=== PATIENT | female | born 1990 | race Asian ===

== ENCOUNTER 2018-11-28 16:05 | Inpatient (IN) | payer OTHER, BC ==
[2018-11-28] MEDS ORDERED: Lactated Ringers 1000 ML Bag* 1,000 ML IV ONE (17:25)
--- NOTE | 2018-11-28 17:40 | HP ---
General Information - Reason for Visit IUP@41 weeks IOL for postdates - General Information Maternal Age: 28 Grav: 1 Para: 0 SAB: 0 IEA: 0 Estimated Due Date: 11/21/18 Determined By: LMP Gestational Age in Weeks/Days: 41+0 Maternal Blood Type and Rh: O Positive - Results this Serology/RPR Result: Non-Reactive Rubella Result: Immune HBsAg Result: Negative HIV Result: Negative GBS Culture Result: Negative Past Medical History Pertinent Past Medical History: See Records Past Medical History Comment: PCOS Pertinent Past Surgical History: None Pertinent Family History: Non-Contributory - Antepartal Records Antepartal Records: Reviewed, Complicated by: - Polyhydramnios ( resolved); placental lesion (chorioangioma?); IUGR at outside facilty (resolved) Review of Systems Constitutional: Comfortable CV Complaint: No Respiratory: Shortness of Breath: No Gastrointestinal: No Nausea/Vomiting, Normal Bowel Movement Genitourinary: No Dysuria, No Bleeding, No Leaking Fluid Musculoskeletal: No Complaint Neurological: No Headache, No Visual Changes Movement: Normal Exam BP 118/97, HR 89, RR 17, O2 sat 100%. temp 98.7 - Measurements Height: 5 ft 4 in Weight: 142 lb Weight in lbs: 142.035060 Body Mass Index (BMI): 24.3 Pre- Weight: 110 lb Weight Gained This : 32 lbs and 0 ozs - Exam CVA: No CVA Tenderness Extremities: No Edema Heart: Normal Rhythm/Heart Sounds HEENT: No Significant Findings Lungs: Clear Bilaterally Rectal: Rectal Exam Deferred Reflexes: DTR 2+ Thyroid: No Thyromegaly - Abdominal Exam Abdomen Exam: Non-Tender, Fundal Height Consistent with Dates Targeted Exam Findings Cervical Exam: 2cm Effacement: 80% Station: 0 Presenting Part: Vertex Membrane Status: Intact Bleeding/Discharge: None EFM Findings - External Monitor Findings Baseline Heart Rate: 130 External Monitor Findings: Accelerations Present, No Pattern of Variable or Late Decelerations, Variability Moderate, Baseline Stable Contractions: Irregular, 45-90 Seconds Assessment/Plan - Assessment S: 28yo, , at 41+0 presents for an IOL for postdates. Pt reports good movement. Denies contractions, vaginal bleeding, loss of fluid. course significant for polyhydramnios (resolved), suspected IUGR (resolved), and a placental lesion (possible chorioangioma), persistent n/v, and a dx of left breast lump at outside facility. Pt and desire IOL. O: 118/67, HR 89, RR 17, temp 98.7 baseline 130, +accels, no decels Contractions q2-8 VE per CNM in office, 2/80-90%/0, vtx, posterior. Lopez score = 8 PE WNL A: IUP at 41+0 VSS FHT reassuring, no sign of metabolic acidemia Irregular contractions Lopez score of 8 = favorable for Pitocin induction P: Admit for IOL for postdates Given Lopez score of 8, PARQ dicussion with pt re: IOL with Pitocin Following dicussion, pt and opt to proceed with Pitocin induction Anticipate progression to - Plan Plan: Induction, Admit - Anticipate Vaginal Delivery - Date/Time of Admission Date of Admission: 11/28/18 Time of Admission: 17:00
[2018-11-28 17:44] LABS: ABS Basophils 0 10^3/ul (0-0.2); ABS Eosinophils 0.1 10^3/ul (0-0.6); ABS Monocytes 0.7 10^3/ul (0-0.8); ABS Nucleated RBC 0 10^3/ul; Eosinophil % 0.6 %; Hematocrit 40 % (35-47); Hemoglobin 13.4 g/dl (12.0-16.0); Lymphocyte % 20.8 %; Mean Corpuscular HGB Conc 33 g/dl (31-36); Mean Corpuscular Hemoglobin 28 pg (27-31); Mean Corpuscular Volume 84 fL (80-97); Mean Platelet Volume 7.8 fL (7.4-10.4); Nucleated Red Blood Cells % 0.1; Platelet Count 201 10^3/ul (150-450); Red Blood Count 4.82 10^6/ul (4.00-5.40); Red Cell Distribution Width 13 % (10.5-15); White Blood Count 9.8 10^3/ul (3.5-10.8)
[2018-11-28] MEDS ORDERED: Oxytocin in LR* 20 UNITS/1,000 ML BAG IVPB ONE (17:46)
[2018-11-28] MEDS ORDERED: Oxytocin in LR* 20 UNITS/1,000 ML BAG IVPB SCH (18:00)
[2018-11-28] MEDS: Lactated Ringers 1000 ML Bag* 1,000 ML IV SCH ×2 (18:18→21:33)
--- NOTE | 2018-11-28 21:59 | PN ---
Progress Note - Progress Note Date of Service: 11/28/18 Note: S: Pt reports feeling cramping, not associated with contractions. Overall reports doing well. Pt currently OOB, ambulating in the halls. O: Pitocin at 3mU FHT: baseline 140, moderate variability, +accels, variable decels VE deferred A: Currently Category I tracing; Periods of Category II that resolved with IV fluid bolus and position changes Pt comfortable, not in active labor P: Continue increasing pitocin as tolerated by pt and baby Anticipate progression to
--- NOTE | 2018-11-29 01:24 | PN ---
Progress Note - Progress Note Date of Service: 11/29/18 Note: S: Pt states she is feeling her contractions and the pain is becoming more intense. Requesting a vaginal exam. O: Pitocin at 6mU FHT 125, moderate variability, +accels, no decels VE: 2/0/-1, vtx posterior A: Category I FHT, no evidence of acidemia VE unchanged from VE prior to initiation of Pitocin Pt not in active labor P: Continue to increase pitocin as tolerated by pt and baby Encouraged pt to rest as needed Will consider AROM with pt consent if no cervical change with next VE Anticipate progression to
[2018-11-29] MEDS: Lactated Ringers 1000 ML Bag* 1,000 ML IV SCH ×3 (02:42→17:09)
[2018-11-29] MEDS ORDERED: Nalbuphine* 10 MG/ML 1 ML VIAL IV PRN (02:52)
[2018-11-29] MEDS ORDERED: Promethazine INJ(RESTRICTED)* 25 MG/ML 1 ML VIAL IV PRN (02:52)
--- NOTE | 2018-11-29 02:57 | PN ---
Progress Note - Progress Note Date of Service: 11/29/18 SOAP: Subjective: [Feeling general crampiness more than increasing contraction pain. Tired but finding it difficult to rest/sleep.] Objective: [Pit @ 10 FHT 125, Cat 1 UCs q 2-3 min VSS, afebrile] Assessment: [IUP @ 41+1 for induction of labor No evidence metabolic acidemia] Plan: [Discussed therapeutic rest and pitocin break with restart in the am after some sleep. Patients in agreement.]
--- NOTE | 2018-11-29 05:34 | PN ---
Progress Note - Progress Note Date of Service: 11/29/18 Note: S: Pt asleep. O: VSS A: IUP@41+1 IOL for postdates Successful therapeutic rest via nubain/phen P: Resume IOL when pt alert and active in the AM Anticipate progression to
[2018-11-29] MEDS ORDERED: Oxytocin in LR* 20 UNITS/1,000 ML BAG IVPB SCH ×2 (08:39→18:51)
[2018-11-29] MEDS ORDERED: OBEPIDURAL* 250 ML EPIDURAL ONE (11:41)
--- NOTE | 2018-11-29 11:44 | PN ---
Progress Note - Progress Note Date of Service: 11/29/18 Note: Slept after medication. Pitocin restarted at [id number], now sebastian every 2-3 minutes. Uncomfortable, requesting epidural Cervix: 4cm/100%, vtx 0 FHT: baseline 140, mod variability, accels present Dr. No contacted for epidural
[2018-11-29] MEDS ORDERED: fentaNYL* 50 MCG/ML 2 ML VIAL (100 MCG VIAL) ONE (11:47)
[2018-11-29] MEDS ORDERED: Phenylephrine IV* 40 MCG/ML 10 ML SYRINGE ONE (11:48)
[2018-11-29] MEDS ORDERED: Sodium Citrate/Citric Acid* 15 ML UDC PO PRN (12:22)
[2018-11-29] MEDS ORDERED: Lactated Ringers 1000 ML Bag* 500 ML IV PRN ×2 (12:22)
[2018-11-29] MEDS ORDERED: Famotidine TAB* 20 MG PO PRN (12:22)
[2018-11-29] MEDS ORDERED: Phenylephrine IV* 40 MCG/ML 10 ML SYRINGE IV PUSH PRN ×2 (12:22)
[2018-11-29] MEDS ORDERED: Lactated Ringers 1000 ML Bag* 1,000 ML IV ONE (12:22)
--- NOTE | 2018-11-29 12:57 | PN ---
Progress Note - Progress Note Date of Service: 11/29/18 Note: comfortable after epidural 4 variable decels to 60 in a 6-7 minute period, resolved after position change, O2, fluid. Pitocin off Cervix: 5-6 cm, 100% FHT now 150s with prolonged accel to 180. Will keep pitocin off for now, continue to observe closely
[2018-11-29] MEDS ORDERED: Lactated Ringers 1000 ML Bag* 1,000 ML IV SCH ×3 (13:00→19:00)
[2018-11-29] MEDS ORDERED: OBEPIDURAL* 250 ML EPIDURAL SCH (13:00)
--- NOTE | 2018-11-29 14:44 | PN ---
Progress Note - Progress Note Date of Service: 11/29/18 Note: No further decels or bradycardia but minimal variability. Baseline stable. Contractions have spaced out, every 4-6. Now leaking clear fluid. Cervix: 7cm/100%, vtx 0/-1 Variability now moderate after scalp stimulation. Will restart pitocin at 2 mu/min
--- NOTE | 2018-11-29 17:40 | PN ---
Progress Note - Progress Note Date of Service: 11/29/18 Note: Feeling pressure Fully dilated, vertex +2 at 1720, began pushing
[2018-11-29] MEDS ORDERED: Acetaminophen TAB* 325 MG PO PRN (18:48)
[2018-11-29] MEDS ORDERED: Dibucaine 1% 28.35 GM TUBE PR PRN (18:48)
[2018-11-29] MEDS ORDERED: Witch Hazel PAD* JAR TOPICAL PRN (18:48)
[2018-11-29] MEDS ORDERED: Glycerin ADULT SUPP PR PRN (18:48)
--- NOTE | 2018-11-29 18:59 | PROCNOTE ---
[facility] OB: Delivery Note - Delivery A Date of : 11/29/18 Time of : 18:25 [place] Sex: Female Score 1 Minute: 9 Score 5 Minutes: 9 Gestational Age in Weeks and Days at Delivery: 41 Weeks and 1 Days Delivery Method: Spontaneous Vaginal Labor: Induced Did Patient attempt ?: N/A, No Previous Amniotic Fluid: Clear Estimated Blood Loss: 300 Anesthesia/Analgesia: CEI for Labor Anesthesia Comment: Dr. No Delivered By: Juanita Pierson - Nursery Level of Nursery: Regular/Bedside - Perineum Perineal Injury: Perineal Laceration - partial 3rd degree Perineal Repair: Dr. Deutsch - Additional Delivery Notes Additional Delivery Notes: SVB LFC, OA, in squatting position. Baby pink with stimulation, terminal mec. Placenta Davi. Partial 3rd deg laceration noted, Dr. Deutsch called for repair. Placenta appears normal, no evidence of chorioangioma, sent to lab. EBL 300 cc
--- NOTE | 2018-11-29 19:34 | PN ---
Progress Note - Progress Note Date of Service: 11/29/18 Note: Asked to assist with perineal repair -it was a partial 3rd degree tear. The fibers of the capsule were reapproximated with 1 figure of eight suture of 3-0 vicryl rapide. Two deep figure of eight sutures were placed to decrease bleeding and reapproximate the perineal body. The rest of the repair was then done in the usual fashion.
[2018-11-29] MEDS: Ibuprofen TAB* 600 MG PO PRN (22:36)
[2018-11-30] MEDS: Ibuprofen TAB* 600 MG PO PRN ×2 (07:31→13:43)
[2018-11-30] MEDS ORDERED: Ferrous Gluconate TAB* 324 MG TAB PO SCH (09:00)
[2018-11-30] MEDS: Docusate CAP* 100 MG PO SCH ×4 (09:10→20:53)
[2018-11-30 09:31] LABS: Hematocrit 34 % (35-47); Hemoglobin 11.3 g/dl (12.0-16.0); Mean Corpuscular HGB Conc 33 g/dl (31-36); Mean Corpuscular Hemoglobin 28 pg (27-31); Mean Corpuscular Volume 83 fL (80-97); Mean Platelet Volume 7.9 fL (7.4-10.4); Platelet Count 163 10^3/ul (150-450); Red Cell Distribution Width 13 % (10.5-15); White Blood Count 12.2 10^3/ul (3.5-10.8)
[2018-12-01 08:28] VITALS: BP 103/64
[2018-12-01] MEDS: Docusate CAP* 100 MG PO SCH (09:24)
[2018-12-01] MEDS: Ibuprofen TAB* 600 MG PO PRN (09:24)
== END 2018-12-01 10:56 | disposition home or self-care (01) | DRG 768 ==
LOC: MCHOBOUT 16:05 → MCHOB 16:50
PROVIDERS: ADMIT Advanced Practice Midwife; ATTEND Advanced Practice Midwife
PROC: 10E0XZZ Delivery of Products of Conception, External Approach (ICD-10-PCS; principal; 2018-11-29)
PROC: 0DQR0ZZ Repair Anal Sphincter, Open Approach (ICD-10-PCS; 2018-11-29)
PROC: 3E033VJ Introduction of Other Hormone into Peripheral Vein, Percutaneous Approach (ICD-10-PCS; 2018-11-29)
DX: O48.0 Post-term pregnancy (principal); Z37.0 Single live birth; O70.20 Third degree perineal laceration during delivery, unspecified; O77.0 Labor and delivery complicated by meconium in amniotic fluid; Z3A.41 41 weeks gestation of pregnancy
CPT/HCPCS: 36415; 85025; 85027; 86850; 86900; 86901; 88307; A9270-GY; J2300; J2550; J3010